=== PATIENT | female | born 1995 | race Caucasian/White ===

== ENCOUNTER 2022-08-31 22:23 | Emergency (ER) | payer OTHER ==
[~2022-08-31] VITALS: Ht 162.6 cm; Wt 81.7 kg
--- OUTSIDE RECORDS SUMMARY | 2022-08-31 22:56 | XMS ---
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 Additional care guidelines exist for the following facilities: [place] [id number] ( 02/10/2020 ) [facility] ( 04/06/2019 ) [facility] ( 12/30/2017 ) [facility] ( 01/30/2016 ) Care History Behavioral 07/24/2014 [facility] ED History: Connor has had [facility] ED [facility] at [facility] since 04/19/14. Visits were primary for psychiatric reasons: SI, auditory hallucinations, overdose and self-harm injuries, as well as, seizure like activity/allergic reactions. Medical Summary: current and chronic stable conditions: Connor is a 19 year old transgender female who patient prefers referenced as male. 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 Connor [facility] ED with above listed conditions. Connor currently resides in [facility] Group Housing through [facility]. Patient has been approved for DD housing; process is underway by care team to transition to more appropriate placement. Action Plan for BH management: unknown at this time EDemetra VISIT COUNT (12 MO.) 1 [facility] TOTAL 1 NOTE: Visits indicate total known visits. ED/UCC VISIT TRACKING (12 MO.) 08/31/2022 22:24 [facility] [place] TYPE: Emergency COMPLAINT: - SUICIDAL IDEATIONS INPATIENT VISIT TRACKING (12 MO.) No inpatient visits to display in this time frame [id number]
[2022-08-31] MEDS ORDERED: INVEGA SUS234 MG/1.5 IM (23:21)
== END 2022-09-01 00:42 | disposition home or self-care (01) ==
LOC: ED 22:23
DX: F32.A Depression, unspecified (principal); Z88.6 Allergy status to analgesic agent; Z20.822 Contact with and (suspected) exposure to COVID-19
CPT/HCPCS: 36415; 80053; 84443; 84703; 85025; 87502; 99285; G0480; U0003

== ENCOUNTER 2022-12-02 18:45 | Emergency (ER) | payer OTHER ==
[~2022-12-02] VITALS: Ht 162.6 cm; Wt 79.4 kg
[~2022-12-02 18:45] MED LIST: INVEGA SUS234 MG/1.5 IM
--- OUTSIDE RECORDS SUMMARY | 2022-12-02 18:51 | XMS ---
PreManage Notification: CONNOR JOHNSTON Security Hris Specialist Events No recent Security Events currently on file CRITERIA MET - [facility] [place]ARE [place]ERS -, Linda- Dentist: Floor Cleaner [facility] Dental [facility] PHONE: [phone] ELIZABETH WINN. Family Medicine 07/20/2012-Current PHONE: Unknown GRIFFIN MARIN Family Medicine Current PHONE: Unknown JOHANNA GAMA Bottom Liner/Vp Client Services 01/14/2020-Current PHONE: [phone] Guidelines Source: [facility] [place] Guidelines Date: 07/12/2021 Care Recommendation: Please contact Elizabeth Gormano, [facility] [phone] if Connor should present in the ED. Additional care guidelines exist for the following facilities: [place] [id number] ( 02/10/2020 ) [facility] ( 04/06/2019 ) [facility] ( 12/30/2017 ) [facility] ( 01/30/2016 ) Care History Behavioral 07/24/2014 [facility] ED History: Connor has [facility] 04/19[facility]. Visits were primary for psychiatric reasons: SI, auditory hallucinations, overdose and self-harm injuries, as well as, seizure like activity/allergic reactions. Medical Summary: current and chronic stable conditions: Connor is a 19 year old transgender female who patient prefers referenced as male. 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 Connor [facility] presents to [facility] ED with above listed conditions. Connor currently resides in [facility] Housing through [facility]. Patient has been approved for DD housing; process is underway by care team to transition to more appropriate placement. Action Plan for BH management: unknown at this time E.Walker. VISIT COUNT (12 MO.) [address] [facility] TOTAL 2 NOTE: Visits indicate total known visits. ED/UCC VISIT TRACKING (12 MO.) 12/02/2022 18:48 [facility] TYPE: Emergency COMPLAINT: - FALL R ARM INJ 08/31/2022 22:24 [facility] TYPE: Emergency COMPLAINT: - SUICIDAL IDEATIONS DIAGNOSES: - Contact with and (suspected) exposure to COVID-19 - Allergy status to analgesic agent - Suicidal ideations - Depression, unspecified INPATIENT VISIT TRACKING (12 MO.) No inpatient visits to display in this time frame [email or web address]
== END 2022-12-02 19:48 | disposition home or self-care (01) ==
LOC: ED 18:45
DX: S60.211A Contusion of right wrist, initial encounter (principal); W10.8XXA Fall (on) (from) other stairs and steps, initial encounter; J45.909 Unspecified asthma, uncomplicated; Z88.8 Allergy status to other drugs, medicaments and biological substances
CPT/HCPCS: 29125; 73110; 99283-25

== ENCOUNTER 2025-04-12 09:17 | Emergency (ER) | payer OTHER ==
[~2025-04-12] VITALS: Ht 162.6 cm; Wt 96.9 kg
[~2025-04-12 09:17] MED LIST changes: +AMITRIPTYLINE100 MG PO; +ATOMOXETINE HCL80 MG PO; +BENZONATATE100 MG PO; +CLONIDINE HCL0.1 MG PO; +METOPROLOL SUC100 MG PO; +NASAL DECONGEST30 MG PO
[2025-04-12] MEDS ORDERED: POLYETHYLENE GL17 GM PO (09:44)
[2025-04-12] MEDS ORDERED: GABAPENTIN300 MG PO (09:44)
[2025-04-12] MEDS ORDERED: AMOX TR-K CLV1 EAC1 PO (09:55)
[2025-04-12 11:03] VITALS: BP 122/84
== END 2025-04-12 11:04 | disposition home or self-care (01) ==
LOC: ED 09:17
DX: L03.031 Cellulitis of right toe (principal); J45.909 Unspecified asthma, uncomplicated; Z79.899 Other long term (current) drug therapy
CPT/HCPCS: 73630; 99283

== ENCOUNTER 2025-04-21 22:05 | Emergency (ER) | payer OTHER ==
[~2025-04-21] VITALS: Ht 162.6 cm; Wt 96.9 kg
[~2025-04-21 22:05] MED LIST changes: +AMOX TR-K CLV1 EAC1 PO; +GABAPENTIN300 MG PO; +POLYETHYLENE GL17 GM PO
[2025-04-21 22:25] LABS: BLOOD/HGB, URINE NEGATIVE (Negative); KETONE, URINE NEGATIVE (Negative); LEUK ESTERASE, URINE NEGATIVE (negative); NITRITE, URINE NEGATIVE (negative)
[2025-04-21 22:38] LABS: BASOPHILS 0.9 % (0.1-1.2); EOSINOPHILS 1.3 % (0.7-5.8); LYMPHOCYTES 28.7 % (19.3-51.7); MCH 31.0 PG (25.6-32.2); MCHC 35.4 g/dL (32.2-35.5); MCV 87.6 fL (79.4-94.8); MONOCYTES 9.3 % (4.7-12.5); NEUTROPHILS 59.2 % (34.0-71.1); RBC 5.00 M/uL (3.93-5.22)
[2025-04-21 22:51] LABS: AMPHETAMINES, URINE NEGATIVE (NEGATIVE); BARBITURATES, URINE NEGATIVE (NEGATIVE); BENZODIAZEPINE, URINE NEGATIVE (NEGATIVE); CANNABINOID, URINE NEGATIVE (NEGATIVE); COCAINE, URINE NEGATIVE (NEGATIVE); ECSTASY, URINE NEGATIVE (NEGATIVE); FENTANYL, URINE NEGATIVE (NEGATIVE); METHADONE, URINE NEGATIVE (NEGATIVE); OPIATES, URINE NEGATIVE (NEGATIVE); OXYCODONE, URINE NEGATIVE (NEGATIVE); PHENCYCLIDINE, URINE NEGATIVE (NEGATIVE)
[2025-04-21 23:04] LABS: ALCOHOL, MEDICAL 185 ng/dL (<3); ALT (SGPT) 15 U/L (14-59); AST (SGOT) 16 U/L (15-37); GLOMERULAR FILTRATION RATE,EST 113 mL/min (>60); PROTEIN, TOTAL 8.0 g/dL (6.4-8.2); TSH, 3RD GENERATION 1.500 uIU/mL (0.358-3.740); UREA NITROGEN 9 mg/dL (7-18)
[2025-04-22 00:53] VITALS: BP 144/103
== END 2025-04-22 01:00 | disposition home or self-care (01) ==
LOC: ED 22:05
PROVIDERS: Family Medicine
DX: R45.88 Nonsuicidal self-harm (principal); F32.A Depression, unspecified; F10.129 Alcohol abuse with intoxication, unspecified; J45.909 Unspecified asthma, uncomplicated; Y90.6 Blood alcohol level of 120-199 mg/100 ml; Z79.899 Other long term (current) drug therapy; Z91.030 Bee allergy status
CPT/HCPCS: 36415; 80053; 80307; 81003; 84443; 84703; 85025; 99284; G0480